=== PATIENT | male | born 1955 | race Caucasian/White ===

== ENCOUNTER → 2020-04-01 12:20 | Outpatient (BNVA) | payer OTHER, SELFPAY | PROVIDERS: Family Provider Family Medicine; Visit Provider Emergency Medicine | DX: Z11.59 Encounter for screening for other viral diseases (principal) | CPT/HCPCS: 87635 ==

== ENCOUNTER 2022-10-08 06:27 | Outpatient (CLI) | payer MEDICARE, SELFPAY ==
--- NOTE | 2022-10-08 | US_ITS ---
WS: [id number] Gallbladder and right upper quadrant ultrasound, 10/08/2022 Clinical Data: ABDOMINAL PAIN Comparison: None. Findings: The gallbladder shows no sludge or stone. The wall measures 0.2 cm with no pericholecystic fluid. The common bile duct is 0.7 cm and there are no intrahepatic ductal abnormalities. Liver shows no cysts, masses or dilated intrahepatic ducts. The pancreas is not obscured by overlying bowel gas and no cyst, pseudocyst, or evidence of pancreati tis is noted. Right kidney measures 12.6 cm and no cyst, masses or hydronephrosis can be seen. The aorta and inferior vena cava show no vascular abnormalities. US/US abdomen limited [id number] Impression: Negative right upper quadrant and gallbladder ultrasound.
== END 2022-10-08 06:28 | disposition home or self-care (01) ==
PROVIDERS: PCP Family Medicine; Visit Provider Family Medicine
DX: R10.9 Unspecified abdominal pain (principal)
CPT/HCPCS: 76705

== ENCOUNTER → 2023-10-05 15:30 | Outpatient (BNVA) | payer MEDICARE, SELFPAY | PROVIDERS: PCP Family Medicine; Referring Provider Family Medicine; Visit Provider Internal Medicine Cardiovascular Disease | DX: R07.9 Chest pain, unspecified (principal); I25.118 Atherosclerotic heart disease of native coronary artery with other forms of angina pectoris; I10 Essential (primary) hypertension; E78.5 Hyperlipidemia, unspecified; Z82.49 Family history of ischemic heart disease and other diseases of the circulatory system | CPT/HCPCS: 93005; 99204 ==

== ENCOUNTER 2023-10-08 06:04 | Outpatient (CLI) | payer MEDICARE, SELFPAY ==
--- NOTE | 2023-10-08 06:30 | USCV_ITS ---
Elier Colt Age: 68 Gender: M : 1955 Exam Date: 10/08/2023 06:14 Ordering Phys: Yesica Lebron MD ([email or web address]) Technologist: Diaz Ortiz [place] [facility] [place] HISTORY: Diameter (cm) AP x Transverse x Length Velocity (cm/s) Waveform Prox Aorta: 2.00 x 2.10 x 118.40 Mid Aorta: 1.90 x 1.90 x 132.40 Distal Aorta: 2.00 x 2.00 x 129.80 Right Iliac Prox: 1.40 x 1.30 x 112.00 Left Iliac Prox: 1.50 x 1.50 x 67.90 Stent Prox Landing x x Aneurysmal Sac Max x x Lt Lat Sac Dim Rt Lat Sac Dim Stent Dist Landing x x Right Iliac Stent x x Left Iliac Stent x x Right Renal Art Left Renal Art FINDINGS: Normal abdominal aortic dimensions. Normal Doppler flow velocities Normal proximal common iliac artery dimensions CONCLUSIONS 1. No evidence of abdominal aortic aneurysm 2. No significant stenosis in the abdominal aorta or proximal common iliac arteries, based on the above findings Dr Yesica Lebron MD [facility] (Electronically Signed) Final Date: 08 Oct 2023 22:27 S
== END 2023-10-08 06:05 | disposition home or self-care (01) ==
LOC: RAD 06:05
PROVIDERS: PCP Family Medicine; Visit Provider Internal Medicine Cardiovascular Disease
DX: I71.40 Abdominal aortic aneurysm, without rupture, unspecified (principal)
CPT/HCPCS: 93978

== ENCOUNTER 2023-11-04 08:43 | Outpatient (CLI) | payer MEDICARE, SELFPAY ==
--- NOTE | 2023-11-04 08:50 | ECG_ITS ---
[facility] Test Date: 2023-11-04 Pat Name: Colt Thapa Department: Room: Gender: Male Outside Operator: : 1955 Requested By: Yesica Lebron Order Number: [id number] Geoff MD: Yesica Lebron M.D. Interpretive Statements NAME OF STUDY: EXERCISE SESTAMIBI STRESS TEST INDICATION: Chest Pain PROCEDURE: The baseline electrocardiogram showed normal sinus rhythm with normal ST-Ts. At the baseline, the patient's blood pressure was 152/102 mm Hg with a heart rate of 84. The patient exercised for 7 minutes and 30 seconds on a standard Victoriano protocol. Patient attained a maximum heart rate of 146 beats per minute(94% of the maximum predicted heart rate) with a blood pressure at the peak exercise of 186/92 mm Hg. The EKG at the peak exercise revealed no significant changes. Patient did not have any chest pain or any significant arrhythmis with the exercise Sestamibi was injected 1 minute prior to the peak exercise During the recovery phase, there were no new changes. Blood pressure at the end of the recovery phase was 177/110 mm Hg with a heart rate of 89 per minute. CONCLUSION: 1. No significant EKG changes with the [treadmill exercise 2. No exercise-induced chest pain or cardiac arrhythmia 3. Fair exercise tolerance, attained a maximum of 10.2 METs 4. Sestamibi/Sestamibi perfusion results pending; see separate report. Electronically Signed On 11-09-2023 8:56:57 CDT by Yesica Lebron M.D. [id number]
--- NOTE | 2023-11-04 08:50 | NMCV_ITS ---
NM johanna perf SPECT r/s* [id number] TitusColt rosario Age: 68 Gender: M : 1955 Exam Date: 11/04/2023 08:50 Ordering Phys: Yesica Lebron MD ([email or web address]) Technologist: RESHMA Santos Exam [facility] Indications: CORONARY ANGIOPLASTY STATUS STRESS TEST Please [facility] for [facility] IMAGE PROTOCOL Rest/Stress 1 Exercise Day Radiopharmaceutical Dose (mCi) Administration Site Administered by Rest: Tc-99m 10.9 IV RESHMA Vo Sestamibi Stress:Tc-99m 32.9 IV RESHMA Vo Sestamibi Rest: 04-Nov-2023 60 Discovery 630 Stress: 04-Nov-2023 15 Discovery 630 Radiopharmaceutical was injected at 88 % maximum heart rate. Images obtained in supine and prone position. SPECT RESULTS Technical Quality: Excellent Raw Data Analysis: Normal Image Corrections: No attenuation or motion correction applied Summed Stress Score: 0 Summed Rest Score: 1 Summed Difference Score: 0 PERFUSION FINDINGS Uniform myocardial tracer uptake. No significant perfusion abnormalities. FUNCTIONAL RESULTS (calculated via Gated SPECT) Stress Image LV EF (%): 64 Stress EDV (mL):151 TID: 0.93 Stress ESV (mL):54 FUNCTIONAL FINDINGS: Segmental wall motion analysis revealing no gross wall motion abnormalities IMPRESSIONS 1. Myocardial perfusion imaging revealing uniform myocardial tracer uptake with no significant perfusion normalities 2. Normal LV ejection fraction of 64%. 3. LV wall motion analysis revealing no gross wall motion abnormalities. 4. Mildly dilated LV [id number] volume of 54 ml Low probability for coronary ischemia, based on the above findings No similar previous studies are available for comparison Dr Yesica Lebron MD [facility] (Electronically Signed) Final Date: 05 Nov 2023 07:00 S
[2023-11-04 09:11] VITALS: BMI 29.6
[2023-11-04 10:57] VITALS: BP 177/99; PULSE 96
== END 2023-11-04 08:44 | disposition home or self-care (01) ==
PROVIDERS: PCP Family Medicine; Visit Provider Internal Medicine Cardiovascular Disease
DX: R07.9 Chest pain, unspecified (principal)
CPT/HCPCS: 36415; 78452; 93017; 96374; A9500

== ENCOUNTER → 2023-12-03 13:57 | Outpatient (BNVA) | payer MEDICARE, SELFPAY | PROVIDERS: PCP Family Medicine; Visit Provider Internal Medicine Cardiovascular Disease | DX: I25.118 Atherosclerotic heart disease of native coronary artery with other forms of angina pectoris (principal); Z82.49 Family history of ischemic heart disease and other diseases of the circulatory system; I10 Essential (primary) hypertension; E78.5 Hyperlipidemia, unspecified; Z87.898 Personal history of other specified conditions | CPT/HCPCS: 99214 ==